=== PATIENT | female | born 1965 | race Caucasian/White ===

== ENCOUNTER 2021-02-17 06:04 | Inpatient (IN) ==
--- NOTE | 2021-02-01 12:48 | PAT Medication Instructions ---
Medication Instructions Date of Service February 01, 2021 Home Medications albuterol sulfate 1 inh INHALATION QID PRN ascorbic acid (vitamin C) 300 mg PO QAM aspirin [Aspir-81] 81 mg PO QAM atorvastatin 80 mg PO HS calcium carbonate-vitamin D3 [Caltrate 600 plus D] 1 tab PO PM fluticasone furoate-vilanterol [Breo Ellipta] 1 inh INHALATION QAM lactobacillus combination no.4 [Probiotic] 3,000 mmu cells PO QAM metoprolol succinate 50 mg PO QAM montelukast [Singulair] 10 mg PO HS multivitamin [One A Day] 1 tab PO QAM ramipril 1.25 mg PO QAM ASK your surgeon for instructions aspirin [Aspir-81] 81 mg PO QAM DO NOT take the morning of surgery ascorbic acid (vitamin C) 300 mg PO QAM lactobacillus combination no.4 [Probiotic] 3,000 mmu cells PO QAM multivitamin [One A Day] 1 tab PO QAM ramipril 1.25 mg PO QAM Take morning of surgery With a small sip of water, OTHERWISE NOTHING TO EAT OR DRINK AFTER MIDNIGHT: albuterol sulfate 1 inh INHALATION QID PRN (if needed, and bring with you to the hospital) fluticasone furoate-vilanterol [Breo Ellipta] 1 inh INHALATION QAM metoprolol succinate 50 mg PO QAM Take evening before surgery albuterol sulfate 1 inh INHALATION QID PRN (if needed) atorvastatin 80 mg PO HS calcium carbonate-vitamin D3 [Caltrate 600 plus D] 1 tab PO PM montelukast [Singulair] 10 mg PO HS Other Notes If you have any questions please call us at [phone] or [phone] or [phone] or [phone]
--- NOTE | 2021-02-03 12:40 | Anesthesiology Consultation ---
Date of Service February 03, 2021 Assessment & Plan (1) Encounter for pre-operative examination: Chart Review Chart Review: Pending: Refer to Additional Notes / Consult section (pending surgeon ordered PCP and cardio clearance 02/09/21 and preop Covid testing ) and Patient NOT seen in Pre Admission Testing Awaiting surgeon ordered PCP and cardio clearance (both scheduled 02/09/21) Pt states most narcotic pain meds cause severe N/V- usually needs pre- medicated with anti-nausea medications if pain meds needed. Morphine is the worst. Per PAT appt on 02/03/21, pt resides in [facility]. Travels to [facility] for medical appts. Wears mask in public. No known Covid positive contacts or Covid related symptoms. No known Covid infection in the past 90 days. Preop Covid testing 02/10/21= will await results. Educated on importance of self quarantining, social distancing and wearing mask in public both for the patient and household contacts. Teaching & Discussion Pre-Anesthesia Teaching/Discussion Notes: Instructed NPO after midnight before surgery,except medications with 15 cc of water. Medication instructions provided according to the PAT guidelines. History Surgery Operation Date: 02/17/21 09:35 Proposed Procedures p C4-C6 Anterior Cervical Discectomy and Fusion, Spinal Cord Monitoring - Corky Birch, Height/Weight Height: 5 ft 5 in Weight: 91.6 kg Allergies Allergy/AdvReac Type Severity Reaction Status Date / Time acetaminophen [From Percocet] Allergy Severe Migraine/ Verified 02/01/21 08:00 N/V hydromorphone [From Dilaudid] Allergy Severe Migraine/ Verified 02/01/21 08:00 N/V ketorolac [From Toradol] Allergy Severe Migraine/ Verified 02/01/21 08:00 N/V oxycodone Allergy Severe Migraine/ Verified 02/01/21 08:00 N/V morphine AdvReac Severe Migraine / Verified 02/01/21 08:00 N/V Medications Home Medications Medication Instructions Recorded Confirmed Last Taken albuterol sulfate 1 inh INHALATION QID PRN 02/01/21 02/01/21 Unknown ascorbic acid (vitamin C) [Vitamin 300 mg PO QAM 02/01/21 02/01/21 Unknown C] aspirin [Aspir-81] 81 mg PO QAM 02/01/21 02/01/21 Unknown atorvastatin 80 mg PO HS 02/01/21 02/01/21 Unknown calcium carbonate-vitamin D3 1 tab PO PM 02/01/21 02/01/21 Unknown [Caltrate 600 plus D] fluticasone furoate-vilanterol 1 inh INHALATION QAM 02/01/21 02/01/21 Unknown [Breo Ellipta] lactobacillus combination no.4 3,000 mmu cells PO QAM 02/01/21 02/01/21 Unknown [Probiotic] metoprolol succinate 50 mg PO QAM 02/01/21 02/01/21 Unknown montelukast [Singulair] 10 mg PO HS 02/01/21 02/01/21 Unknown multivitamin [One A Day] 1 tab PO QAM 02/01/21 02/01/21 Unknown ramipril 1.25 mg PO QAM 02/01/21 02/01/21 Unknown Past Medical History Medical History Asthma well controlled > worse in spring/fall Degenerative disc disease Fibromyalgia Hyperlipidemia Migraine Myocardial Infarction March 2020> Ramipril for this per pt > no longer on Plavix > Dr. Jovel in [place] - no stents needed PVC (premature ventricular contraction) Rheumatoid arthritis No meds at this time just dx in Nov 2020 Will see rheum in May 2021 Exercise / Class Metabolic Activity II 4-5 Yardwork/Stairs/Walk up hill (one flight of stairs - no chest pain or SOB) Past Family History Family History Father Diabetes Past Surgical History Surgical History History of arthroscopy right knee History of breast biopsy right > benign History of cardiac cath following heart attack March 2020 > no stents > [facility] [place] History of colonoscopy History of esophagogastroduodenoscopy (EGD) History of hysterectomy History of lumbar surgery x3 History of repair of rotator cuff bilat History of tonsillectomy History of tooth extraction Past Anesthesia History No Hx of Anesthesia Complications (with exception to PONV) and No Family Hx of Anesthesia Complications (with exception to son and daughter- post op N/V) History of PONV History of PONV and Hx of Motion Sickness Social History Smoking Status: Never smoker Do You Dip or Chew Tobacco: No Hx Alcohol Use: Yes Alcohol type: wine and hard liquor alcohol intake frequency: holidays/special occasions only Hx Substance Use: No substance use type: does not use Review of Systems Increased stress (personal issues) Patient denies chest pain, shortness of breath, dyspnea on exertion, reflux, cough, wheezing, palpitations. No hx of seizures, stroke, apnea/snoring. No hx of blood clots or blood transfusions Physical Exam Vital Signs VITALS BP 111/74 P 54 TEMP 98.2 SP02 97% RESP 16 Constitutional no acute distress ENMT Mouth: no TMJ clicking Thyromental Distance: > or= 3.5 Finger Breadths (3.5) Mallampati Class: II Missing molar Capped right side tooth Neck neck extension not limited Respiratory normal respiratory effort; no respiratory distress Auscultation: lungs clear to auscultation bilaterally; no wheezes Cardiovascular Rate/Rhythm: regular rate and regular rhythm Heart Sounds: no murmur Vessels: no carotid bruit Musculoskeletal Spine: + pain with cervical ROM (mild ) Extremities: extremities normal to inspection Psychiatric Orientation: alert Testing Laboratory Results 02/03/21 12:55 02/03/21 12:55 PT 10.1 Seconds (9.0-12.0) 02/03/21 12:55 INR 1.0 (0.9-1.1) 02/03/21 12:55 APTT 23.7 Seconds (21.0-31.0) 02/03/21 12:55 Urine Color Dark Yellow 02/03/21 12:55 Urine Appearance Clear (Clear) 02/03/21 12:55 Urine pH 5.5 (4.5-7.5) 02/03/21 12:55 Ur Specific Revloc 1.033 (1.000-1.030) H 02/03/21 12:55 Urine Protein Negative (Negative) 02/03/21 12:55 Urine Glucose (UA) Negative (Negative) 02/03/21 12:55 Urine Ketones Trace (Negative) H 02/03/21 12:55 Urine Nitrite Negative (Negative) 02/03/21 12:55 Ur Leukocyte Esterase 1+ (Negative) H 02/03/21 12:55 Urine WBC (Auto) 5-10 /hpf (0-5) H 02/03/21 12:55 Urine RBC (Auto) 10-30 /hpf (0-4) H 02/03/21 12:55 U Hyaline Cast (Auto) 1-5 /lpf (0-5) 02/03/21 12:55 U Epithel Cells (Auto) >30 /lpf (0-5) H 02/03/21 12:55 Urine Bacteria (Auto) Negative (Negative) 02/03/21 12:55 Blood Type O Positive 02/03/21 12:55 Antibody Screen NEGATIVE 02/03/21 12:55 Surgeon's office informed of leukocytosis Electrocardiogram Date: 04/20/20 SR at 68bpm. PVCs Chest X-Ray Date: 06/22/20 Findings: + NAD Echocardiogram Date: 10/13/20 EF: 55% LV Function: normal RWMA: + none Valvular Disease: + no significant valvular disease Stress Test Date: 07/28/20 Type: exercise Exercise stress EKG is negative for ischemia at a workload of approximately 12 METS. MPHR >85%. Cardiac Catheterization Date: 04/08/20 LM= no angiographically significant disease LAD = in the mid segment of the vessel, around a slight tortuosity, there appears to be ruptured plaque which however is causing only a 30-40% angiographic lesion. Left circumflex = no angiographically significant disease. RCA = no angiographically significant disease. Plan: Medical management in the form of dual antiplatelet therapy for early 6 months. High intensity statin. Heparin for the next 48 hours. Beta- william/JOHNNIE inhibitors. Patient developed symptoms or EKG changes, repeat cath should be done through a groin approach.
[2021-02-03 13:32] LABS: Hematocrit (blood only) 42.8 % (37-47); Hemoglobin 14.6 g/dL (12.0-16.0); Mean Corpuscular Hgb Conc 34.1 g/dL (32-36); Mean Corpuscular Volume 93.9 fL (80-100); Mean Platelet Volume 9.6 fL (7.4-10.4); Platelet Count 331 K/uL (130-400); RDW Coefficient of Variation 14.2 % (11.5-14.5); RDW Standard Deviation 48.3 fL (36.4-46.3); Red Blood Count 4.56 M/uL (4.2-5.4); White Blood Count 13.44 K/uL (4.8-10.8)
[2021-02-03 13:33] LABS: Appearance Urine Clear (Clear); Bacteria Urine Automated Negative (Negative); Bilirubin Urine Negative (Negative); Blood Urine Negative (Negative); Color Urine Dark Yellow; Epithelial Cell Urine Auto >30 /lpf (0-5); Glucose Urine UA Negative (Negative); Ketones Urine Trace (Negative); Leukocyte Esterase Urine 1+ (Negative); Nitrite Urine Negative (Negative); Protein Urine Negative (Negative); Specific Gravity Urine 1.033 (1.000-1.030); Urobilinogen Urine Negative (Negative); pH Urine 5.5 (4.5-7.5)
[2021-02-03 13:45] LABS: Partial Thromboplastin Ratio 0.9; Partial Thromboplastin Time 23.7 Seconds (21.0-31.0); Prothrombin Time 10.1 Seconds (9.0-12.0)
[2021-02-03 13:58] LABS: Basophils # (auto) 0.04 K/uL (0-0.2); Basophils % (auto) 0.3 %; Eosinophils # (auto) 0.12 K/uL (0-0.5); Eosinophils % (auto) 0.9 %; Immature Granulocytes # (auto) 0.04 K/uL (0.00-0.02); Immature Granulocytes % (auto) 0.3 %; Lymphocytes # (auto) 6.13 K/uL (1.2-3.4); Lymphocytes % (auto) 45.6 %; Monocytes # (auto) 0.85 K/uL (0.11-0.59); Monocytes % (auto) 6.3 %; Neutrophils # (auto) 6.26 K/uL (1.4-6.5); Neutrophils % (auto) 46.6 %
[2021-02-03 14:04] LABS: BUN Creatinine Ratio 27.8 (10-20); Calcium 9.6 mg/dl (8.5-10.1); Creatinine Clr Calc Pharmacy 80.8 ml/min; Est GFR (African American) 85.2; Est GFR (Non-African American) 73.5; Potassium 4.5 mmol/L (3.5-5.1)
[~2021-02-17 06:04] MED LIST: ACETAMINOPHEN 500 MG TAB PO SCH; CHECK SCOPOLAMINE PATCH PLACEMENT SCH; CeleBREX 200 MG CAP PO SCH; GABAPENTIN 900 MG DOSE PO SCH; LR 15ML/HR IV SCH; Scopolamine 1 MG TDSY TD SCH; ceFAZolin 2000MG 2,000 MG/15 ML SYR IV SCH
[2021-02-17] MEDS ORDERED: BACITRACIN INJ 50,000 UNIT VIAL ONE (07:04)
[2021-02-17] MEDS ORDERED: MIDAZOLAM HCL 1 MG/ML 2ML VIAL ONE (07:08)
[2021-02-17] MEDS ORDERED: fentaNYL citrate 100 MCG/2 ML VIAL ONE (07:09)
[2021-02-17] MEDS ORDERED: fentaNYL citrate 100 MCG/2 ML VIAL IV PRN (07:11)
[2021-02-17] MEDS ORDERED: ATROPINE SULFATE 0.1 MG/ML 10ML SYR IV PRN (07:11)
[2021-02-17] MEDS ORDERED: PROMETHAZINE HCL 12.5 MG in SODIUM CHLORIDE 0.9% 50 ML IV PRN ×2 (07:11→10:26)
[2021-02-17] MEDS ORDERED: ePHEDrine sulfate 50 MG/ML AMP IV PRN (07:11)
[2021-02-17] MEDS ORDERED: ONDANSETRON INJ 2 MG/ML 2 ML VIAL IV PRN ×2 (07:11→10:26)
[2021-02-17] MEDS ORDERED: PROPOFOL IV EMULSION 10 MG/ML 100 ML VIAL IV ONE (07:20)
[2021-02-17] MEDS ORDERED: ACETAMINOPHEN 1000 MG/100 ML IV IV ONE ×2 (07:22→07:34)
[2021-02-17] MEDS ORDERED: FAMOTIDINE/PF 20 MG/2 ML VIAL IV ONE (07:23)
--- NOTE | 2021-02-17 07:32 | History & Physical Bridge Note ---
Date of Service February 17, 2021 History & Physical Bridge Note I have examined the patient, reviewed the History & Physical and in the interval since the performance of the History & Physical I have noted the following changes of clinical significance: no changes noted
--- NOTE | 2021-02-17 07:33 | History & Physical Report ---
Date of Service February 17, 2021 Assessment & Plan (1) Cervical stenosis of spinal canal: Admission and Anticipated Discharge Date Admission Date: C5-C6 anterior cervical discectomy and fusion History of Present Illness Chief Complaint: Neck and arm pain Primary Care Provider: Stevo Bennett This is a 55-year-old female presents with chronic persistent neck and arm pain. Failing course of nonoperative care is here for surgical invention. Allergies Allergy/AdvReac Type Severity Reaction Status Date / Time acetaminophen [From Percocet] Allergy Severe Migraine/ Verified 02/17/21 06:34 N/V hydromorphone [From Dilaudid] Allergy Severe Migraine/ Verified 02/17/21 06:34 N/V ketorolac [From Toradol] Allergy Severe Migraine/ Verified 02/17/21 06:34 N/V oxycodone Allergy Severe Migraine/ Verified 02/17/21 06:34 N/V morphine AdvReac Severe Migraine / Verified 02/17/21 06:34 N/V Home Medications Medication Instructions Recorded Confirmed Type albuterol sulfate 1 inh INHALATION QID PRN 02/01/21 02/17/21 History ascorbic acid (vitamin C) [Vitamin 300 mg PO QAM 02/01/21 02/17/21 History C] aspirin [Aspir-81] 81 mg PO QAM 02/01/21 02/17/21 History atorvastatin 80 mg PO HS 02/01/21 02/17/21 History calcium carbonate-vitamin D3 1 tab PO PM 02/01/21 02/17/21 History [Caltrate 600 plus D] fluticasone furoate-vilanterol 1 inh INHALATION QAM 02/01/21 02/17/21 History [Breo Ellipta] lactobacillus combination no.4 3,000 mmu cells PO QAM 02/01/21 02/17/21 History [Probiotic] metoprolol succinate 50 mg PO QAM 02/01/21 02/17/21 History montelukast [Singulair] 10 mg PO HS 02/01/21 02/17/21 History multivitamin [One A Day] 1 tab PO QAM 02/01/21 02/17/21 History ramipril 1.25 mg PO QAM 02/01/21 02/17/21 History Past Med/Surg History Medical History Asthma well controlled > worse in spring/fall Degenerative disc disease Fibromyalgia Hyperlipidemia Migraine Myocardial Infarction March 2020> Ramipril for this per pt > no longer on Plavix > Dr. Jovel in [place] - no stents needed PVC (premature ventricular contraction) Rheumatoid arthritis No meds at this time just dx in Nov 2020 Will see rheum in May 2021 Surgical History History of arthroscopy right knee History of breast biopsy right > benign History of cardiac cath following heart attack March 2020 > no stents > [facility] [place] History of colonoscopy History of esophagogastroduodenoscopy (EGD) History of hysterectomy History of lumbar surgery x3 History of repair of rotator cuff bilat History of tonsillectomy History of tooth extraction Family History Father Diabetes Social History Smoking Status: Never smoker Second Hand Exposure: Yes (as kid); Do You Dip or Chew Tobacco: No; Tobacco Cessation Education Requested by Patient: No Hx Alcohol Use: Yes Alcohol type: wine and hard liquor Hx Substance Use: No Preferred Language: Czech Communication Ability: Effective Sustainable Design Consultant Required: No Beliefs That Will Affect Care: None Current Living Situation: Spouse Other Information That Helps Us Care for You: No Feels Safe at Home: Yes Safety Concerns: Feels Safe At This Time Assistive Devices: Glasses Physical Exam Physical Exam: Patient is alert and oriented Heart regular in rhythm Lungs clear to auscultation Results & Data ([facility]) Vital Signs (Past 12 Hours) Vital Signs Temp Pulse Resp BP Pulse Ox 02/17/21 06:59 37.1 C 97 H 18 149/50 H 95
[2021-02-17] MEDS ORDERED: SCOPOLAMINE 1 MG TDSY TD SCH (07:45)
[2021-02-17] MEDS ORDERED: diphenhydrAMINE 50 MG/ML VIAL ONE (08:11)
[2021-02-17] MEDS ORDERED: FLOSEAL HEMOSTATIC MATRIX 10ML TOP ONE (08:22)
[2021-02-17] MEDS ORDERED: DEXAMETHASONE SOD INJ 4 MG/ML VIAL ONE (08:24)
[2021-02-17] MEDS ORDERED: PHENYLEPHRINE 100MCG/ML 5ML SYR ONE (08:24)
[2021-02-17] MEDS ORDERED: GLYCOPYRROLATE 0.2 MG/ML VIAL ONE (08:24)
[2021-02-17] MEDS ORDERED: ONDANSETRON INJ 2 MG/ML 2 ML VIAL ONE (08:24)
[2021-02-17] MEDS ORDERED: NEOSTIGMINE METHYLSULFATE 1 MG/ML 10ML VIAL ONE (08:24)
[2021-02-17] MEDS ORDERED: LARYING-O-JET KIT (LTA) ONE (08:24)
[2021-02-17] MEDS ORDERED: LIDOCAINE HCL 2% 2 ML VIAL/AMP(20MG/ML) INFIL ONE (08:24)
[2021-02-17] MEDS ORDERED: ePHEDrine sulfate 50 MG/ML SYR ONE (08:24)
[2021-02-17] MEDS ORDERED: ROCURONIUM BROMIDE 10 MG/ML 5 ML VIAL IV ONE (08:24)
[2021-02-17] MEDS ORDERED: PROPOFOL IV EMULSION 10 MG/ML 20 ML VIAL IV ONE (08:24)
--- NOTE | 2021-02-17 08:52 | Operative Report ---
Post Operative Report Pre & Post Diagnosis Operation Date: 02/17/21 07:45 Pre-Op Diagnosis: Cervical disc condition with radiculopathy Post-Op Diagnosis: Same I identified the patient and participated in the time-out.: Yes Procedure Operation Date: 02/17/21 07:45 Actual Procedures #1 anterior cervical discectomy with bilateral foraminotomies C5-C6. #2 anterior cervical arthrodesis C5-C6. #3 placement of 7 mm Spira filled with I factor at C5-C6. #4 application of beck plate and screws across C5-C6. Surgeon Corky Birch, DO Blasting Helper Sarai Croft Estimated Blood Loss 10 Findings See Below Patient is 5 foot 5 weighing over 91 kg with a BMI in excess of 33. Patient's body mass did contribute technical difficulty adding least 25% increase to the operative time. Specimens None Indications This is a 55-year-old female well-known to me who presents above-mentioned diagnosis after failing since course of nonoperative care is here for surgical invention. Description of Procedure Patient was met with identified informed consent obtained. Patient was then taken to the operative suite underwent an patient placed in a supine position Keith table with head Gusman lateral. All bony prominences well-padded eyes inspected to ensure no external pressure placed upon the. This point the anterior cervical spine was prepped and draped in a sterile fashion. The assistance of fluoroscopy verified the C5-6 disc base. A transverse incision wa s placed along the right anterior aspect of the cervical spine overlying this region. Sharp dissection with assistance of bipolar electrocautery performed down to expose the anterior cervical spine at C5-C6. Several 10 retractors placed. Then performed a complete discectomy of C5-C6 to the uncovertebral joints bilaterally. [place] distraction pins utilized to assist in visualization. Removed all posterior annular fibers longitudinal ligament bilateral foraminotomies performed. The endplates were then burred to subcortical being bone and a 7 mm spiral cage filled with I factor was tapped in position. Distracting apparatus was removed and a 5 complete screws applied with the assistance of fluoroscopy. The incision was then copiously irrigated explored to ensure no damage to surrounding structures remaining bleeding. 10 round DAHIANA drain inserted. The incision was then closed with 2 Vicryl in the fashion of 4 Monocryl for final skin closure. Steri-Strip sterile dressings placed. Patient will continue PACU stable condition. Please note Sarai Croft was present at the entire procedure involved in patient positioning complex portions of the surgery and final skin closure. I attest to the content of the Intraoperative Record and any orders documented therein. Any exceptions are noted below.
--- NOTE | 2021-02-17 09:06 | Fluoroscopy Report ---
FL cervical 2-3V HISTORY: 55 years-old Female ACDF C5-C6 status post cervical spine fusion COMPARISON: None TECHNIQUE: 2 spot fluoroscopic images of the cervical spine were obtained utilizing 11.1 seconds fluo roscopy time FINDINGS: Anterior plate and screw fusion with discectomy changes at C5-C6. Alignment appears satisfactory on t hese images. There are 2 radiodense surgical sponges projecting in the adjacent anterior soft tissues . IMPRESSION: Fluoroscopic assistance as above. ACT 112: Negative or not required by law. The above report was generated using voice recognition software. It may contain grammatical, syntax o r spelling errors. Electronically signed by: Akira Chacko M.D. 02/17/2021 9:05 AM
[2021-02-17] MEDS ORDERED: diphenhydrAMINE Capsule 25 MG CAP PO PRN (10:26)
[2021-02-17] MEDS ORDERED: dexAMETHasone 8 MG in SYRINGE 0 ML IV PRN (10:26)
[2021-02-17] MEDS ORDERED: ACETAMINOPHEN 500 MG TAB PO PRN (10:26)
[2021-02-17] MEDS ORDERED: NALOXONE HCL 0.4 MG/1 ML VIAL/CARP IV PRN (10:26)
[2021-02-17] MEDS ORDERED: DO NOT ADMINISTER PNEUMOCOCCAL VACCINE PRN (10:26)
[2021-02-17] MEDS ORDERED: RACEPINEPHRINE 2.25% NEBU SOLN 0.5 ML VIAL INH PRN (10:26)
[2021-02-17] MEDS ORDERED: SOD PHOSPHATE/SOD BIPHOSPHATE ENEMA 132 ML BTL PR PRN (10:26)
[2021-02-17] MEDS ORDERED: METOCLOPRAMIDE HCL INJ 5 MG/ML 2 ML VIAL IV PRN (10:26)
[2021-02-17] MEDS ORDERED: ONDANSETRON 4 MG OD TAB PO PRN (10:26)
[2021-02-17] MEDS ORDERED: ALUMINUM/MAGNESIUM SUSP 30 ML UDC PO PRN (10:26)
[2021-02-17] MEDS ORDERED: hydrOXYzine HCl 25 MG TAB PO PRN (10:26)
[2021-02-17] MEDS ORDERED: ACETAMINOPHEN 1,000 MG/100 ML VIAL IV PRN (10:26)
[2021-02-17] MEDS ORDERED: traMADol HCL 50 MG TABLET PO PRN (10:26)
[2021-02-17] MEDS ORDERED: DO NOT ADMINISTER FLU VACCINE PRN (10:26)
[2021-02-17] MEDS ORDERED: FAMOTIDINE 20 MG TAB PO PRN (10:26)
[2021-02-17] MEDS ORDERED: MAGNESIUM HYDROXIDE SUSP 30 ML UDC PO PRN (10:26)
[2021-02-17] MEDS ORDERED: LORazepam 0.5 MG/1 ML VIAL IV PRN (10:26)
[2021-02-17] MEDS ORDERED: LORazepam 0.5 MG TAB PO PRN (10:26)
[2021-02-17] MEDS ORDERED: HYDROCODONE/ACETAMOPHEN 5/325MG TAB PO PRN (10:26)
[2021-02-17] MEDS: LACTATED RINGER'S 1,000 ML IV SCH ×2 (10:44→20:26)
[2021-02-17] MEDS ORDERED: ALBUTEROL HFA 8 GM INHALER INH PRN (11:00)
[2021-02-17] MEDS: ENALAPRIL MALEATE 5 MG TAB PO SCH (12:31)
[2021-02-17] MEDS: METOPROLOL SUCC 50MG EXT REL TAB PO SCH (12:31)
[2021-02-17] MEDS: FLUTICASONE/VILANTEROL 100/25MCG 14 PUFFS/INHALER INH SCH (12:31)
--- NOTE | 2021-02-17 13:23 | Anesthesiology Progress Note ---
Date of Service February 17, 2021 Anesthesia Post Procedure Vital Signs Vital Signs: Temp Pulse Pulse Resp BP BP Pulse Ox 02/17/21 12:14 57 L 16 102/67 99 02/17/21 11:16 53 L 16 107/70 100 02/17/21 11:05 56 L 18 99 02/17/21 10:46 54 L 16 102/67 98 02/17/21 10:15 36.3 C L 59 L 16 102/67 96 02/17/21 10:10 66 12 111/66 97 02/17/21 10:00 36.5 C 57 L 13 115/58 L 97 02/17/21 09:50 55 L 14 105/53 L 98 02/17/21 09:40 62 15 123/60 99 02/17/21 09:30 56 L 12 103/59 L 100 02/17/21 09:20 51 L 12 124/68 99 02/17/21 09:10 48 L 16 119/64 99 02/17/21 09:00 36 C L 66 14 132/79 100 02/17/21 06:59 37.1 C 97 H 18 149/50 H 95 Pulse Ox 02/17/21 12:14 02/17/21 11:16 02/17/21 11:05 02/17/21 10:46 02/17/21 10:15 96 02/17/21 10:10 02/17/21 10:00 02/17/21 09:50 02/17/21 09:40 02/17/21 09:30 02/17/21 09:20 02/17/21 09:10 02/17/21 09:00 02/17/21 06:59 Pain Intensity Neck: Pain Intensity: 3 Transfer of Care Handoff Completed per policy Notes Mental Status: alert / awake / arousable and participated in evaluation Patient Amnestic to Procedure: Yes Nausea / Vomiting: adequately controlled Pain: adequately controlled Airway Patency, RR, SpO2: stable & adequate BP & HR: stable & adequate Hydration State: stable & adequate Anesthetic Complications: no major complications apparent and Pt Satisfied with anesthetic care
[2021-02-17] MEDS: ASPIRIN 81 MG ECTAB PO SCH (13:30)
[2021-02-17] MEDS ORDERED: Nursing to Pharmacy Communication SCH (15:30)
[2021-02-17] MEDS ORDERED: Scopolamine CHECK PATCH PLACEMENT SCH (16:00)
[2021-02-17] MEDS: ceFAZolin 2000MG 2,000 MG/15 ML SYR IV SCH (16:08)
[2021-02-17] MEDS ORDERED: ATORVASTATIN 40 MG TAB PO SCH (21:00)
[2021-02-17] MEDS ORDERED: MONTELUKAST SODIUM 10 MG TABLET PO SCH (21:00)
[2021-02-17] MEDS ORDERED: DOCUSATE SODIUM/SENNA 50/8.6MG TAB PO SCH (21:00)
[2021-02-17] MEDS ORDERED: CALCIUM 600MG + VIT D 400 IU TAB PO SCH (21:00)
[2021-02-18] MEDS: ceFAZolin 2000MG 2,000 MG/15 ML SYR IV SCH (01:19)
[2021-02-18] MEDS ORDERED: POLYETHYLENE (MIRALAX) 17 GM PACK PO SCH (06:00)
[2021-02-18] MEDS: ASPIRIN 81 MG ECTAB PO SCH (08:35)
[2021-02-18] MEDS: FLUTICASONE/VILANTEROL 100/25MCG 14 PUFFS/INHALER INH SCH (08:35)
[2021-02-18] MEDS: ENALAPRIL MALEATE 5 MG TAB PO SCH (08:36)
[2021-02-18] MEDS: METOPROLOL SUCC 50MG EXT REL TAB PO SCH (08:36)
--- NOTE | 2021-02-18 08:52 | Anesthesiology Progress Note ---
Date of Service February 18, 2021 Anesthesia Post Procedure Vital Signs Vital Signs: Temp Pulse Pulse Pulse Pulse Resp BP 02/18/21 07:55 61 18 02/18/21 06:58 36.4 C L 73 16 02/18/21 05:15 36.5 C 54 L 12 02/18/21 03:20 36.5 C 52 L 14 106/64 02/18/21 03:00 53 L 18 02/18/21 01:15 36.3 C L 50 L 12 02/17/21 23:00 36.5 C 74 61 18 02/17/21 21:00 36.4 C L 60 18 02/17/21 19:13 64 18 02/17/21 19:00 70 18 02/17/21 17:13 67 20 02/17/21 15:36 65 20 02/17/21 14:47 36.5 C 67 16 02/17/21 13:28 73 18 02/17/21 12:14 57 L 16 02/17/21 11:16 53 L 16 02/17/21 11:05 56 L 18 02/17/21 10:46 54 L 16 02/17/21 10:15 36.3 C L 59 L 16 02/17/21 10:10 66 12 111/66 02/17/21 10:00 36.5 C 57 L 13 115/58 L 02/17/21 09:50 55 L 14 105/53 L 02/17/21 09:40 62 15 123/60 02/17/21 09:30 56 L 12 103/59 L 02/17/21 09:20 51 L 12 124/68 02/17/21 09:10 48 L 16 119/64 02/17/21 09:00 36 C L 66 14 132/79 BP Pulse Ox Pulse Ox 02/18/21 07:55 97 02/18/21 06:58 111/74 97 02/18/21 05:15 106/63 99 02/18/21 03:20 99 02/18/21 03:00 98 02/18/21 01:15 107/65 100 02/17/21 23:00 101/63 98 02/17/21 21:00 110/69 99 02/17/21 19:13 118/70 99 02/17/21 19:00 98 02/17/21 17:13 118/75 98 02/17/21 15:36 99 02/17/21 14:47 106/53 L 97 02/17/21 13:28 104/69 99 02/17/21 12:14 102/67 99 02/17/21 11:16 107/70 100 02/17/21 11:05 99 02/17/21 10:46 102/67 98 02/17/21 10:15 102/67 96 96 02/17/21 10:10 97 02/17/21 10:00 97 02/17/21 09:50 98 02/17/21 09:40 99 02/17/21 09:30 100 02/17/21 09:20 99 02/17/21 09:10 99 02/17/21 09:00 100 Pain Intensity Neck: Pain Intensity: 0 Throat: Pain Intensity: 0 Notes Mental Status: alert / awake / arousable and participated in evaluation Patient Amnestic to Procedure: Yes Nausea / Vomiting: adequately controlled Pain: adequately controlled Airway Patency, RR, SpO2: stable & adequate BP & HR: stable & adequate Hydration State: stable & adequate Anesthetic Complications: no major complications apparent
--- NOTE | 2021-02-18 14:17 | Discharge Summary ---
Date of Service February 18, 2021 Admission HPI Per Admitting Provider This is a 55-year-old female presents with chronic persistent neck and arm pain. Failing course of nonoperative care is here for surgical invention. Principal Diagnosis Cervical radiculopathy Discharge Data Allergies Allergy/AdvReac Type Severity Reaction Status Date / Time acetaminophen [From Percocet] Allergy Severe Migraine/ Verified 02/17/21 06:34 N/V hydromorphone [From Dilaudid] Allergy Severe Migraine/ Verified 02/17/21 06:34 N/V ketorolac [From Toradol] Allergy Severe Migraine/ Verified 02/17/21 06:34 N/V oxycodone Allergy Severe Migraine/ Verified 02/17/21 06:34 N/V morphine AdvReac Severe Migraine / Verified 02/17/21 06:34 N/V Procedures Performed Operation Date: 02/17/21 07:45 Actual Procedures p C5-C6 Anterior Cervical Discectomy and Fusion(Not Applicable) - Corky Birch DO Ordered Studies 02/17/21 07:45 FL cervical 2-3V Routine FL fluoroscopy <1hr Routine Hospital Course (1) Cervical stenosis of spinal canal: Patient went anterior cervical discectomy fusion tolerated so was taken to orthopedic for postop labor postop day and when she was up and ambulating swallowing well no hoarseness arm symptoms markedly improved. Strength intact. DAHIANA drain decreasing probably. Subsequent discharge home. Discharge orders instructions found the chart for further view. Total Time Total Time Spent Total Time Spent (In Minutes): 20 minutes Discharge Plan Discharge Items Patient Disposition: Home - Self-Care Reason For Visit: SPinal Stenosis Cervical Region Discharge Diagnosis: Cervical spinal stenosis with radiculopathy Activity: As commented below Non-emergency contact: Primary Care Provider Call non-emergency contact if: you have any medication questions Follow-up/Referrals: Stevo Bennett [Primary Care Provider] - Diet: Regular Addtl Attending Provider Instructions: ACTIVITY RECOMMENDATIONS: SELF CARE INSTRUCTIONS AFTER CERVICAL FUSIONS 1. No smoking. Smoking drastically decreases the chance of a solid fusion. 2. No bending, lifting more than 5 pounds, or twisting (roll like a log when turning in bed). 3. You may shower 3 days after surgery. Thoroughly dry wound. Do not soak in the tub. 4. Cervical collar: Must be worn at all times including sleeping. You may remove the brace only to bath, eat and if you are sitting in a recliner. 5. Please walk as much as you can for exercise. Gradually increase the distance that you walk as your endurance increases. SPECIAL CARE INSTRUCTIONS: VERY IMPORTANT TO READ AND REVIEW A. Do not take any anti-inflammatory medications (i.e. Indocin, Advil, Aspirin, Naprosyn, Aleve, Motrin, etc.) as these may inhibit the chance of a solid fusion. Tylenol is okay to take. B. Your surgical incision has been closed with a cosmetic suture under the skin that will dissolve in about 6 weeks. In 14 days, you can use a pair of clean scissors and cut the suture that is left outside of the skin at the ends of your incision. C. Complications are uncommon, but please contact us if you have any signs or symptoms of: 1. wound infection (fever higher than 102.5 degrees F, redness, separation of wound, drainage, or increasing pain from the incision) 2. blood clots in legs (pain, swelling, redness and warmth in legs) 3. urinary tract infection (fever higher than 102.5 degrees, burning upon urination or increased frequency of urination) 4. nerve problems (inability to walk on your toes or heels, numbness, loss of bowel or bladder control) 5. any other symptoms that concern you. D. Please call the office at if you have any concerns or questions about your operation or recovery. MANAGING PAIN AFTER SPINAL SURGERY 1. Narcotic medication is intended for short-term use and will be provided for surgical pain. Surgical pain usually lasts for a period of 4-6 weeks. Narcotic medication includes Percocet, Vicodin, Darvocet, Tylenol #3 or Lortab. 2. Longer-term pain is more appropriately treated with non-narcotic medication such as Tylenol ES. 3. Muscle spasm is not appropriately treated with narcotics. Muscle relaxers such as Soma, Flexeril or Skelaxin can be used along with Tylenol ES. 4. Remember that we all live with some "aches and pains". This is not unusual or uncommon after an injury or as we get older. 5. We will provide appropriate medication within the normal guidelines of their prescribed use. We will also be very cautious and aware of potential abuse and extended duration of patients' medication needs. 6. Please allow 2-3 days to process refills. Prescriptions will not be mailed but must be picked up at the office. FOLLOW UP VISIT: Keep your scheduled follow-up appointment. Any questions, please call the office at . Pending Studies at Discharge: No Stand-Alone Forms: [facility], Smoking Cessation Medications and DC Order Prescriptions: New tramadol 50 mg tablet 50 mg PO Q6H PRN (Reason: pain, moderate) Qty: 20 RF: 0 Continued multivitamin Tablet 1 tab PO QAM RF: 0 ascorbic acid (vitamin C) 300 mg Tablet,Chewable 300 mg PO QAM RF: 0 atorvastatin 80 mg Tablet 80 mg PO HS RF: 0 metoprolol succinate 50 mg Tablet Extended Release 24 Hr 50 mg PO QAM RF: 0 aspirin 81 mg Tablet,Delayed Release (Dr/Ec) 81 mg PO QAM RF: 0 montelukast [Singulair] 10 mg Tablet 10 mg PO HS RF: 0 albuterol sulfate 90 mcg/actuation Hfa Aerosol Inhaler 1 inh INHALATION QID PRN (Reason: Shortness Of Breath) RF: 0 ramipril 1.25 mg Capsule 1.25 mg PO QAM RF: 0 Probiotic 3 billion cell Capsule 3,000 mmu cells PO QAM RF: 0 Breo Ellipta 100-25 mcg/dose Blister With Device 1 inh INHALATION QAM RF: 0 Caltrate 600 plus D 600 mg (1,500 mg)-800 unit Tablet,Chewable 1 tab PO PM RF: 0 Discharge Orders: Discharge Order (Routine); Ordered 02/18/21 Ordered By: Corky Birch Admission Data Admit Date/Time: 02/17/21 09:21 Attending Provider: Corky Birch Admit Provider: Corky Birch Primary Care Provider: Stevo Bennett Other Interventions: Discharge Summary Assessment (RN) Last Done: 02/18/21 12:25
[2021-02-19] MEDS ORDERED: bisacodyL 10 MG SUPP PR PRN (08:53)
== END 2021-02-18 13:00 | disposition home or self-care (01) | DRG 473 ==
LOC: ASU 06:04 → 3E 09:21